=== PATIENT | female | born 1975 | race Caucasian/White ===

== ENCOUNTER 2017-06-28 01:09 | Inpatient (IN) | payer MEDICAID, OTHER ==
[2017-06-28] VITALS (7 sets, daily range): BP systolic 128; BP diastolic 78; PULSE 77–79; RESP 16–18; TEMP 98.1–98.4
[~2017-06-28 01:09] MED LIST: BACT800T5 PO; VENTAER INH; ZITH250T PO
--- NOTE | 2017-06-28 02:19 | HHI.HP ---
HPI Chief Complaint Vaginal bleeding, feeling sick Date Seen: Jun 28, 2017 Time Seen: 02:00 Travel History International Travel<30 Days: No Contact w/Intl Traveler<30Days: No Known Affected Area: No History of Present Illness HPI 41-year-old white female with little to no care since of vaginal bleeding and she describes it "feeling sick", she states the bleeding similar to a period and did not noticed leakage of fluid but with bleeding and was hard for her noted difference, patient was noted to have bleeding for the last several days, prior to that she had bleeding in April which was approximately 14 weeks went to the [facility] had an ultrasound done there which we do not have the results of and was told that she was high risk, she essentially ignored that because she's had no care since that time, she was seen in the ER several days ago and diagnosed with tooth abscess and placed on amoxicillin. Weeks Gestation: 20 Para: 3 : 4 History Obstetric History Obstetric History 3 prior vaginal deliveries Social History Alcohol Use: No Tobacco Use: Yes Substance Abuse: No Allergies-Medications (Allergen,Severity, Reaction): Coded Allergies: adhesive (Unverified Allergy, Mild, BLISTERS AND SKIN REDNESS , 04/26/17) Uncoded Allergies: SELDANE (Allergy, Unknown, N/V SWEATING, 05/06/10) Home Meds Active Scripts Sulfamethoxazole-Trimethoprim DS (Bactrim DS) 1 Tab Tab, 1 TAB PO Q12 for 7 Days , TAB Prov:Lupe Marie MD 10/14/15 Azithromycin (Zithromax Z-Mio) 250 Mg Tab, 250 MG PO DIRECTED for 5 Days, TAB 500 MG (2 TABLETS) PO ON DAY 1, THEN 250 MG (1 TABLET) PO ON DAYS 2 TO 5. Prov:Lupe Marie MD 10/14/15 Albuterol Sulfate (Ventolin Hfa) 18 Gm Aero, 2 PUFF INH Q4, #1 BOX Prov:Lupe Marie MD 10/14/15 Review of Systems General / Constitutional: No: Fever, Weight Gain, Chills, Other Eyes: No: Diploplia, Blurred Vision, Visual changes, Pain, Photophobia HENT: Dental Difficulties, No: Headaches, Vertigo, Lightheadedness Cardiovascular: No: Irregular Rhythm, Chest Pain or Discomfort, Palpitations, Tachycardia, Syncope, Varicosities, Edema, Cyanosis Respiratory: No: Cough, Short of Breath, Other Gastrointestinal: No: Nausea, Vomiting, Diarrhea Genitourinary: No: Decreased Urinary Output, Oliguria Musculoskeletal: No: Limited ROM, Weakness, Cramping, Edema, Pain Skin: No Rash, No Itching, No Dryness, No Lumps, No Change in Pigmentation, No Change in Nails, No Alopecia, No Lesions Neurologic: No: Weakness, Dizziness, Syncope, Focal Abnormalities, Coordination Problem, Headache, Slurred Speech, Seizures Psychiatric: No: Depression, Suicidal Ideations, Homicidal Ideation Endocrine: No: Heat Intolerance, Cold Intolerance, Polydipsia, Polyuria, Other Physical Exam Narrative GENERAL: Well-nourished, well-developed patient. SKIN: Warm and dry. HEAD: Normocephalic and atraumatic. EYES: No scleral icterus. No injection or drainage. ENT: No nasal drainage noted. Mucous membranes pink. Airway patent. NECK: Supple, trachea midline. No JVD. CARDIOVASCULAR: Regular rate and rhythm without murmurs, gallops, or rubs. RESPIRATORY: Breath sounds equal bilaterally. No accessory muscle use. BREASTS: Bilateral exam showed no masses , no retractions, no nipple discharge. ABDOMEN/GI: Abdomen soft, non-tender, bowel sounds present, no rebound, no guarding Gravid to [-20] weeks size Fundal Height: [-at umb] GENITOURINARY: External Genitalia: intact and normal in appearance Vacuum exam done--no active bleeding. The vagina has a washed out appearance and a unit of blood stained vaginal mucosa. Also there is blood staining on the vulva and inner thighs Cervix: [Closed-] Dilatation: [-Closed] Effacement: [-] Thick Station: [-High] Presentation: [-Breech by ultrasound] Membranes: ruptured] Uterine Contractions: [none-] FHT's: 120 EXTREMITIES: No cyanosis or edema. BACK: Nontender without obvious deformity. No CVA tenderness. NEUROLOGICAL: Awake and alert. Motor and sensory grossly within normal limits. Five out of 5 muscle strength in all muscle groups. Normal speech. Caprini VTE Risk Assessment Caprini VTE Risk Assessment: No/Low Risk (score <= 1) Caprini Risk Assessment Model Point Value = 1 Point Value = 2 Point Value = 3 Point Value = 5 Age 41-60 Minor surgery BMI > 25 kg/m2 Swollen legs Varicose veins or History of unexplained or recurrent spontaneous Oral contraceptives or hormone replacement Sepsis (< 1 month) Serious lung disease, including pneumonia (< 1 month) Abnormal pulmonary function Acute myocardial infarction Congestive heart failure (< 1 month) History of inflammatory bowel disease Medical patient at bed rest Age 61-74 Arthroscopic surgery Major open surgery (> 45 min) Laparoscopic surgery (> 45 min) Malignancy Confined to bed (> 72 hours) Immobilizing plaster cast Central venous access Age >= 75 History of VTE Family history of VTE Factor V Leiden Prothrombin [id number] Lupus anticoagulant Anticardiolipin antibodies Elevated serum homocysteine Heparin-induced thrombocytopenia Other congenital or acquired thrombophilia Stroke (< 1 month) Elective arthroplasty Hip, pelvis, or leg fracture Acute spinal cord injury (< 1 month) Prophylaxis Regimen Total Risk Factor Score Risk Level Prophylaxis Regimen 0-1 Low Early ambulation 2 Moderate Order ONE of the following: *Sequential Compression Device (SCD) *Heparin 5000 units SQ BID 3-4 Higher Order ONE of the following medications: *Heparin 5000 units SQ TID *Enoxaparin/Lovenox 40 mg SQ daily (WT < 150 kg, CrCl > 30 mL/min) *Enoxaparin/Lovenox 30 mg SQ daily (WT < 150 kg, CrCl > 10-29 mL/min) *Enoxaparin/Lovenox 30 mg SQ BID (WT < 150 kg, CrCl > 30 mL/min) AND/OR *Sequential Compression Device (SCD) 5 or more Highest Order ONE of the following medications: *Heparin 5000 units SQ TID (Preferred with Epidurals) *Enoxaparin/Lovenox 40 mg SQ daily (WT < 150 kg, CrCl > 30 mL/min) *Enoxaparin/Lovenox 30 mg SQ daily (WT < 150 kg, CrCl > 10-29 mL/min) *Enoxaparin/Lovenox 30 mg SQ BID (WT < 150 kg, CrCl > 30 mL/min) AND *Sequential Compression Device (SCD) Data Data Orders Orders Ob Poc Ultrasound (06/28/17 ) Labs Bedside ultrasound done by me shows a single intrauterine with no amniotic fluid present baby is in the breech to almost transverse position, measurements consistent with 20 weeks 5 days, positive cardiac motion and heart rate 120, placenta is fundal with what appears to be some blood clot or area of hemorrhage between placenta and fetus Assessment/Plan Assessment and Plan 41-year-old white female with essentially no care on regular basis presents with bleeding per vagina and ultrasound finding showing no amniotic fluid around baby, there appears to be areas of hemorrhage in the uterine cavity. Around the placenta and baby, cardiac motion at 120 the baby is in breech presentation, measurements consistent with 20-21 weeks. Impression- placental abruption with PPROM at 20-21 weeks, severe oligohydramnios, breech presentation Plan-plan to check the patient's CBC CMP white counts elevated or if temperature elevates consistent with infection and would begin Cytotec to effect uterine evacuation, if bleeding becomes significant then proceed with uterine evacuation, if cardiac motion stops plan effect uterine evacuation Juarez Spencer II, MD Jun 28, 2017 02:19
[2017-06-28] MEDS ORDERED: MORPHINE SULFATE 4 MG/ML INJ IV PUSH PRN (02:30)
[2017-06-28] MEDS ORDERED: SODIUM CHLORIDE 0.9% FLUSH 10 ML FLUSH IV FLUSH PRN (02:30)
[2017-06-28] MEDS ORDERED: ACETAMINOPHEN 325 MG TAB PO PRN (02:30)
[2017-06-28] MEDS ORDERED: ONDANSETRON HCL 4 MG/2 ML VIAL IV PUSH PRN (02:30)
[2017-06-28] MEDS ORDERED: MORPHINE SULFATE 8 MG/ML INJ IV PUSH PRN (02:30)
[2017-06-28] MEDS ORDERED: cefTRIAXone INJ 1,000 MG in SODIUM CHLORIDE 0.9% INJ 100 ML IV SCH (02:30)
[2017-06-28] MEDS ORDERED: LORazepam 2 MG/ML VIAL IV PUSH PRN (02:30)
[2017-06-28] MEDS: LACTATED RINGER'S 1000 ML INJ 1,000 ML IV SCH ×2 (03:00→19:15)
[2017-06-28 03:25] LABS: BACTERIA, URINE OCC /hpf; BLOOD, URINE MOD (NEG); CALCIUM OXALATE CRYSTALS,URINE RARE /hpf; COMMENT (UR) CULT NOT INDICATED; CULTURE IF INDICATED CULT NOT INDICATED; GLUCOSE,URINE NEG (NEG); KETONE, URINE NEG (NEG); MUCUS URINE FEW /lpf (OCC); NITRITE,URINE NEG (NEG); PH, URINE 5.5 (5.0-8.5); SQUAMOUS EPITHELIAL CELL URINE 6 /hpf (0-5); URINE COLOR YELLOW (YELLW/STRAW)
[2017-06-28 03:38] LABS: ALT (GPT) 501 U/L (10-53); ANION GAP 9 MEQ/L (5-15); AST (GOT) 289 U/L (15-37); BICARBONATE 25.4 MEQ/L (21.0-32.0); BLOOD UREA NITROGEN 12 MG/DL (7-18); CHLORIDE 101 MEQ/L (98-107); GLOMERULAR FILTRATION RATE 126 ML/MIN (>89); SODIUM (NA) 135 MEQ/L (136-145)
[2017-06-28 03:40] LABS: ALKALINE PHOSPHATASE 194 U/L (45-117); TOTAL BILIRUBIN ADULT 0.2 MG/DL (0.2-1.0)
[2017-06-28 03:44] LABS: AUTOMATED NEUTROPHIL # 11.1 TH/MM3 (1.8-7.7); BASOPHIL # 0.1 TH/MM3 (0-0.2); BASOPHIL % 0.6 % (0.0-2.0); EOSINOPHIL # 0.1 TH/MM3 (0-0.4); EOSINOPHIL % 0.5 % (0.0-4.0); HEMATOCRIT 34.8 % (35.0-46.0); LYMPHOCYTE # 2.3 TH/MM3 (1.0-4.8); MEAN CELL VOLUME 83.5 FL (80.0-100.0); MEAN CORPUSCULAR HEMOGLOBIN 27.2 PG (27.0-34.0); MEAN CORPUSCULAR HGB CONC 32.5 % (32.0-36.0); MONO % 6.2 % (0.0-8.0); NEUT % 76.7 % (16.0-70.0); PLATELET COUNT 316 TH/MM3 (150-450); RED BLOOD COUNT 4.16 MIL/MM3 (4.00-5.30); RED CELL DISTRIBUTION WIDTH 15.2 % (11.6-17.2); WHITE BLOOD COUNT 14.5 TH/MM3 (4.0-11.0)
[2017-06-28 03:53] LABS: HEMO FLAGS AUTO DIFF
[2017-06-28 04:21] LABS: BANDS 1 % (0-6); EOSINOPHILS 1 % (0-4); METAMYELOCYTES 1 % (0-1); MYELOCYTES 3 % (0-0); NEUTROPHIL # MANUAL DIFF 10.2 TH/MM3 (1.8-7.7); POLYS (SEG NEUTROPHILS) 64 % (16-70); PROMYELOCYTES 1 % (0-0); WBC DIFF SAMPLE 100
[2017-06-28 04:22] LABS: PLATELET ESTIMATE SMEAR NORMAL (NORMAL); PLATELET MORPHOLOGY NORMAL (NORMAL); SCAN/DIFF FINAL DIFF MANUAL
[2017-06-28 06:16] LABS: INTERNATIONAL NORMALIZED RATIO 0.9 RATIO; PROTHROMBIN TIME - PATIENT 9.5 SEC (9.8-11.6)
--- NOTE | 2017-06-28 09:58 | PD.OB.ANTE ---
Subjective Interval History AFVSS, now feeling some intermittent cramping. Antepartum ROS: Reports: New complaints (cramping (intermittent)), Denies: Loss of fluid, Vaginal bleeding, movement normal, Contractions Objective Vital Signs Vital Signs Date Time Temp Pulse Resp B/P (MAP) Pulse Ox O2 Delivery O2 Flow Rate FiO2 06/28/17 06:00 18 06/28/17 05:00 18 06/28/17 05:00 98.4 06/28/17 04:00 18 06/28/17 03:00 18 Lab & Micro Results Test 06/28/17 02:00 06/28/17 02:30 06/28/17 05:12 Urine Color YELLOW Urine Turbidity HAZY Urine pH 5.5 Urine Specific [place] 1.029 Urine Protein TRACE mg/dL Urine Glucose (UA) NEG mg/dL Urine Ketones NEG mg/dL Urine Occult Blood MOD Urine Nitrite NEG Urine Bilirubin NEG Urine Urobilinogen 2.0 MG/DL Urine Leukocyte Esterase TRACE Urine RBC 8 /hpf Urine WBC 4 /hpf Urine Squamous Epithelial Cells 6 /hpf Urine Calcium Oxalate Crystals RARE /hpf Urine Bacteria OCC /hpf Urine Mucus FEW /lpf Microscopic Urinalysis Comment CULT NOT INDICATED Urine Opiates Screen NEG Urine Barbiturates Screen NEG Urine Amphetamines Screen POS Urine Benzodiazepines Screen NEG Urine Cocaine Screen NEG Urine Cannabinoids Screen POS White Blood Count 14.5 TH/MM3 Red Blood Count 4.16 MIL/MM3 Hemoglobin 11.3 GM/DL Hematocrit 34.8 % Mean Corpuscular Volume 83.5 FL Mean Corpuscular Hemoglobin 27.2 PG Mean Corpuscular Hemoglobin Concent 32.5 % Red Cell Distribution Width 15.2 % Platelet Count 316 TH/MM3 Mean Platelet Volume 8.7 FL Neutrophils (%) (Auto) 76.7 % Lymphocytes (%) (Auto) 16.0 % Monocytes (%) (Auto) 6.2 % Eosinophils (%) (Auto) 0.5 % Basophils (%) (Auto) 0.6 % Neutrophils # (Auto) 11.1 TH/MM3 Lymphocytes # (Auto) 2.3 TH/MM3 Monocytes # (Auto) 0.9 TH/MM3 Eosinophils # (Auto) 0.1 TH/MM3 Basophils # (Auto) 0.1 TH/MM3 CBC Comment AUTO DIFF Differential Total Cells Counted 100 Neutrophils % (Manual) 64 % Band Neutrophils % 1 % Lymphocytes % 25 % Monocytes % 4 % Eosinophils % 1 % Neutrophils # (Manual) 10.2 TH/MM3 Metamyelocytes 1 % Myelocytes 3 % Promyelocytes 1 % Differential Comment FINAL DIFF MANUAL Atypical Lymphocytes % Platelet Estimate NORMAL Platelet Morphology Comment NORMAL Red Cell Morphology Comment NORMAL Blood Urea Nitrogen 12 MG/DL Creatinine 0.54 MG/DL Random Glucose 79 MG/DL Total Protein 7.8 GM/DL Albumin 2.9 GM/DL Calcium Level 8.5 MG/DL Alkaline Phosphatase 194 U/L Aspartate Amino Transf (AST/SGOT) 289 U/L Alanine Aminotransferase (ALT/SGPT) 501 U/L Total Bilirubin 0.2 MG/DL Sodium Level 135 MEQ/L Potassium Level 4.0 MEQ/L Chloride Level 101 MEQ/L Carbon Dioxide Level 25.4 MEQ/L Anion Gap 9 MEQ/L Estimat Glomerular Filtration Rate 126 ML/MIN Prothrombin Time 9.5 SEC Prothromb Time International Ratio 0.9 RATIO Activated Partial Thromboplast Time 25.0 SEC Physical Exam GENERAL: Well-nourished, well-developed patient. CARDIOVASCULAR: Regular rate and rhythm without murmurs, gallops, or rubs. RESPIRATORY: Breath sounds equal bilaterally. No accessory muscle use. ABDOMEN/GI: Abdomen soft, non-tender. Uterus just below umbilicus. GENITOURINARY: External Genitalia: intact and normal in appearance. Cervix closed/thick/high. Minimal bleeding. EXTREMITIES: No cyanosis or edema, non-tender, without signs of DVT. Assessment and Plan Problem List: (1) premature rupture of membranes (PPROM) with unknown onset of labor ICD Codes: O42.919 - premature rupture of membranes, unspecified as to length of time between rupture and onset of labor, unspecified trimester Status: Acute (2) Anhydramnios in second trimester ICD Codes: O41.02X0 - Oligohydramnios, second trimester, not applicable or unspecified Qualifiers: Qualified Codes: O41.02X0 - Oligohydramnios, second trimester, not applicable or unspecified (3) Vaginal bleeding during , antepartum ICD Codes: O46.90 - Antepartum hemorrhage, unspecified, unspecified trimester Status: Acute Assessment and Plan 41-year-old white female with essentially no care on regular basis presents with bleeding per vagina and ultrasound finding showing no amniotic fluid around baby, there appears to be areas of hemorrhage in the uterine cavity. OB diagnostic ultrasound c/w ~22 weeks gestation, ~500 g fetus. FHT within normal limits. Severe oligohydramnios/anhydramnios. Breech presentation. Placenta with intraamniotic hemorrhage. #1 IUP - FHT currently normal, continue to monitor #2 PPROM - Currently afebrile, no indication for delivery at this time. Possibly threatened miscarriage given cramping. Consult neonatology per maternal request to discuss viability of if delivery were to occur #3 Anhydramnios - legal counsel on drug use. Consult neonatology as above. Continue to monitor clinically. #4 Second trimester hemorrhage - Uterus firm, non-tender and patient afebrile. Mild cramping, not severe. Bleeding minimal. Continue to monitor. D/w Zay Goodwin MD R2 Jun 28, 2017 09:58
--- NOTE | 2017-06-28 11:52 | HHI.PR ---
OUTREACH REP Note Note SUMMARY: I assumed care of Ms. Beck this morning. Briefly, she is a 41y/o @ 21.6wks by today's who was admitted overnight with PPROM and suspected abruption. Her is complicated by no PNC, AMA, IVDA ( cocaine previously, currently methamphetamines), MJ use, EtOH use, NSAID exposure, and elevated LFTs. She reports that at the beginning of her , she was using cocaine and experienced vaginal bleeding. She states that it stopped and restarted later in her and she was seen at another hospital recently. She presented here overnight with increased VB and was found to be ruptured. She is anhydramniotic on US. EFW is 500g and she is estimated to be 21.6wks. SUBJECTIVE: Pt denies current LOF. She reports continued VB. She is having cramping and has felt cold. OBJECTIVE: NAD fundus non-tender to palpation no edema Laboratory Tests Test 06/28/17 02:00 06/28/17 02:30 06/28/17 05:12 Urine Color YELLOW Urine Turbidity HAZY Urine pH 5.5 Urine Specific [place] 1.029 Urine Protein TRACE Urine Glucose (UA) NEG Urine Ketones NEG Urine Occult Blood MOD Urine Nitrite NEG Urine Bilirubin NEG Urine Urobilinogen 2.0 Urine Leukocyte Esterase TRACE Urine RBC 8 Urine WBC 4 Urine Squamous Epithelial Cells 6 Urine Calcium Oxalate Crystals RARE Urine Bacteria OCC Urine Mucus FEW Microscopic Urinalysis Comment CULT NOT INDICATED Urine Opiates Screen NEG Urine Barbiturates Screen NEG Urine Amphetamines Screen POS Urine Benzodiazepines Screen NEG Urine Cocaine Screen NEG Urine Cannabinoids Screen POS White Blood Count 14.5 Red Blood Count 4.16 Hemoglobin 11.3 Hematocrit 34.8 Mean Corpuscular Volume 83.5 Mean Corpuscular Hemoglobin 27.2 Mean Corpuscular Hemoglobin Concent 32.5 Red Cell Distribution Width 15.2 Platelet Count 316 Mean Platelet Volume 8.7 Neutrophils (%) (Auto) 76.7 Lymphocytes (%) (Auto) 16.0 Monocytes (%) (Auto) 6.2 Eosinophils (%) (Auto) 0.5 Basophils (%) (Auto) 0.6 Neutrophils # (Auto) 11.1 Lymphocytes # (Auto) 2.3 Monocytes # (Auto) 0.9 Eosinophils # (Auto) 0.1 Basophils # (Auto) 0.1 CBC Comment AUTO DIFF Differential Total Cells Counted 100 Neutrophils % (Manual) 64 Band Neutrophils % 1 Lymphocytes % 25 Monocytes % 4 Eosinophils % 1 Neutrophils # (Manual) 10.2 Metamyelocytes 1 Myelocytes 3 Promyelocytes 1 Differential Comment FINAL DIFF MANUAL Atypical Lymphocytes Platelet Estimate NORMAL Platelet Morphology Comment NORMAL Red Cell Morphology Comment NORMAL Blood Urea Nitrogen 12 Creatinine 0.54 Random Glucose 79 Total Protein 7.8 Albumin 2.9 Calcium Level 8.5 Alkaline Phosphatase 194 Aspartate Amino Transf (AST/SGOT) 289 Alanine Aminotransferase (ALT/SGPT) 501 Total Bilirubin 0.2 Sodium Level 135 Potassium Level 4.0 Chloride Level 101 Carbon Dioxide Level 25.4 Anion Gap 9 Estimat Glomerular Filtration Rate 126 Prothrombin Time 9.5 Prothromb Time International Ratio 0.9 Activated Partial Thromboplast Time 25.0 A/P: 41y/o @ 21.6wks 1. 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 Advised that outcome would depend on EGA at time of delivery (latest would be 34wk IOL) but cautioned that polysubstance abuse can have profound effects on outcome and persistent anhydramnios would be associated with hypoplastic lung syndrome, regardless of age at deliver. Pt aware that viability is typically 23-24wks. Advised that NICU will speak with her prior to making any decisions. Pt also aware that if she chooses expectant management , ideal delivery would be at 34wks, however for distress after viability or for maternal infection, delivery would be sooner. Advised pt on the small but realistic chance of maternal sepsis. Pt counseled that until viability, maternal status is priority and if she showed signs of infection, delivery would need to happen, regardless of survivability. Pt also counseled on the option of IOL now. She is contemplative. -- d/c rocephin; if pt decides for expectant management, initiate latency antibiotics @ 23-24wks -- if pt decides for expectant management, initiate BMZ @ 23-24wks -- monitor closely for s/s of infection -- toco now for monitoring ctx -- NICU and SW c/s pending 2. elevated LFTs -- differential includes hepatitis (pt with IVDA), etoh, tylenol toxicity (pt denies use), HELLP (unlikely given normal BPs and plts) -- hepatitis panel ordered -- avoid hepatic meds at this time 3. Polysubstance abuse -- SW consult needed -- pt counseled extensively on unknown effects -- HIV and hepatitis panel ordered 4. well being -- heart tones qshift 5. General -- diet: regular -- DVT ppx: SCDs -- code status: full Sun Fernandez MD Jun 28, 2017 11:52
[2017-06-28] MEDS ORDERED: CYCLOBENZAPRINE HCL 10 MG TAB PO PRN (15:00)
--- NOTE | 2017-06-28 17:17 | HHI.PR ---
Addendum to Inpatient Note Addendum Reason: Additional Documentation Additional Information Neonatology Consult Note: Maternal Hx: Ms Beck is a 41 y/o with little to no care who presented early this morning with vaginal bleeding over the past couple days that increased recently. She verbally reported a previous ultrasound at an outside facility around 14 weeks gestation that noted anhydramnios at which time she was told that she had a high risk but still did not obtain care. Mom has a history of cocaine use but is now using methamphetamines as well as marijauna (+ UDS on admission). She was also recently seen in the ED and diagnosed with a tooth abscess requiring amoxicillin therapy. Mom's most recent ultrasound completed today by OB diagnositcs placed the baby at 21.6 weeks gestation with an estimated weight of 500gm and noted anhydramnios with concern for placental bleeding as well as an echogenic intracardiac focus. Ms. Beck has been counseled by the OB service that her baby has a very poor prognosis but she requested to speak with Neonatology. We have been consulted by Dr. Spencer and Dr. Amaya to speak with her about viability and extreme prematurity. Maternal Medications: flexiril prn zofran prn acetaminophen prn morphine prn ativan prn Ceftriaxone x 1 HAS NOT received betamethasone Mom has reportedly used cocaine during and UDS was positive for marijuana and methamphetamines. Maternal Serologies: HIV negative Hep B negative Hep C positive (with elevated liver enzymes) RPR pending Discussion: Dr. Aranda and Priscila DE JESUS spoke with mom at her bedside. Mom asked " if her baby had any chance"?. It was explained that there were 2 issues that needed to be discussed which were survival as well as quality of life/ complications if survival occurred. Mom was told that for an average 22 week gestation , chances of survival were very poor, generally about 5-10%. Having said that, her had other concerns such as anhydramnios that considerably complicate the baby's prognosis. She was informed that anhydramnios prevents the lungs from developing normally and that they baby has a high chance of having hypoplastic lungs at delivery, regardless of the gestational age at delivery. She was also told that if she plans to continue this despite the poor prognosis, that in order to maximize the ' s potential, she would need to receive steroids to maximize potential lung function/development and deliver at tertiary care facility with a level III NICU (such as [facility]) as transporting an that premature can add further complications. She was told that if she did deliver at [facility] at 22 weeks gestation or later, that we would attempt stabilization for transport if that was her desire but that she would have to decide her wishes for the infant prior to delivery as the would need immediate invasive medical intervention and there would not be time for discussion at that point. We then discussed some of the common, more severe complications of delivery at extremely gestations such as 22 weeks. We explained, IVH, HMD/BPD requiring extended ventilation, feeding intolerance/NEC, infections requiring antibiotics, etc. We explained that most if not all infants born at this gestation have mcfp complications that can include developmental delays ( as severe as not walking or talking), learning disabilities, cerebral palsy, in addition to an extended hospitalization of 3 months or greater. Mom was very tearful. We asked if she had any family support to which she replied that her ex- was bring her daughter to visit this evening and that she had just spoken with the baby's father who was in [place]. He told her to do whatever she thought was best. She stated she had no questions at this time. We told her that we would give her some time to process the conversation and that the [employer] COORDINATOR would be happy to come and speak with her again if more questions should arise. Dr. Amaya was updated on the discussion. Thank you for this consultation and please feel free to contact the Neonatology team if we can be of any further assistance. Priscila Mcmillan Jun 28, 2017 17:17
[2017-06-28] MEDS: SODIUM CHLORIDE 0.9% FLUSH 10 ML FLUSH IV FLUSH SCH (21:00)
[2017-06-29] VITALS (22 sets, daily range): BP systolic 125–135; BP diastolic 72–89; PULSE 75–240; RESP 16–18; TEMP 97.5–98.3
[2017-06-29 06:08] LABS: AUTOMATED NEUTROPHIL # 8.1 TH/MM3 (1.8-7.7); BASOPHIL # 0.1 TH/MM3 (0-0.2); BASOPHIL % 0.7 % (0.0-2.0); EOSINOPHIL # 0.1 TH/MM3 (0-0.4); EOSINOPHIL % 1.2 % (0.0-4.0); LYMPH % 18.9 % (9.0-44.0); LYMPHOCYTE # 2.1 TH/MM3 (1.0-4.8); MEAN CELL VOLUME 82.9 FL (80.0-100.0); MEAN CORPUSCULAR HEMOGLOBIN 27.3 PG (27.0-34.0); MEAN CORPUSCULAR HGB CONC 32.9 % (32.0-36.0); NEUT % 71.2 % (16.0-70.0); PLATELET COUNT 258 TH/MM3 (150-450); WHITE BLOOD COUNT 11.3 TH/MM3 (4.0-11.0)
[2017-06-29 06:14] LABS: HEMO FLAGS AUTO DIFF
[2017-06-29 06:23] LABS: ANION GAP 6 MEQ/L (5-15); AST (GOT) 181 U/L (15-37); BICARBONATE 23.6 MEQ/L (21.0-32.0); BLOOD UREA NITROGEN 8 MG/DL (7-18); CHLORIDE 106 MEQ/L (98-107); GLOMERULAR FILTRATION RATE 178 ML/MIN (>89); POTASSIUM 4.1 MEQ/L (3.5-5.1); SODIUM (NA) 136 MEQ/L (136-145)
[2017-06-29 06:25] LABS: ALT (GPT) 361 U/L (10-53)
[2017-06-29 06:26] LABS: ALKALINE PHOSPHATASE 159 U/L (45-117); TOTAL BILIRUBIN ADULT 0.2 MG/DL (0.2-1.0)
[2017-06-29] MEDS: LACTATED RINGER'S 1000 ML INJ 1,000 ML IV SCH ×2 (06:30→12:08)
[2017-06-29 07:37] LABS: SCAN/DIFF AUTO DIFF CONFIRMED
--- NOTE | 2017-06-29 08:34 | PD.OB.ANTE ---
Subjective Diagnosis: (1) premature rupture of membranes (PPROM) with unknown onset of labor Diagnosis: Principal (2) Anhydramnios in second trimester (3) 22 weeks gestation of (4) No care in current in second trimester (5) Vaginal bleeding during , antepartum (6) AMA (advanced maternal age) multigravida 35+ (7) Hepatitis C virus (8) Polysubstance abuse Interval History Pt reports no complaints. She denies fevers/chills overnight. States that her cramping has resolved. She had only a small amount of pink blood when she wiped today. Antepartum ROS: Reports: Loss of fluid, Vaginal bleeding, Denies: Contractions Objective Vital Signs Vital Signs Date Time Temp Pulse Resp B/P (MAP) Pulse Ox O2 Delivery O2 Flow Rate FiO2 06/29/17 08:21 16 06/29/17 08:00 16 06/29/17 01:52 77 135/81 (99) 06/29/17 01:30 240 06/28/17 23:05 98.1 16 06/28/17 19:32 77 128/78 (95) 06/28/17 19:30 79 06/28/17 19:30 98.1 18 Lab & Micro Results Test 06/28/17 12:55 06/28/17 14:32 06/29/17 05:04 Fibrinogen 382 mg/dL HIV (1&2) Antibody NEGATIVE White Blood Count 11.3 TH/MM3 Red Blood Count 3.50 MIL/MM3 Hemoglobin 9.6 GM/DL Hematocrit 29.0 % Mean Corpuscular Volume 82.9 FL Mean Corpuscular Hemoglobin 27.3 PG Mean Corpuscular Hemoglobin Concent 32.9 % Red Cell Distribution Width 15.0 % Platelet Count 258 TH/MM3 Mean Platelet Volume 9.0 FL Neutrophils (%) (Auto) 71.2 % Lymphocytes (%) (Auto) 18.9 % Monocytes (%) (Auto) 8.0 % Eosinophils (%) (Auto) 1.2 % Basophils (%) (Auto) 0.7 % Neutrophils # (Auto) 8.1 TH/MM3 Lymphocytes # (Auto) 2.1 TH/MM3 Monocytes # (Auto) 0.9 TH/MM3 Eosinophils # (Auto) 0.1 TH/MM3 Basophils # (Auto) 0.1 TH/MM3 CBC Comment AUTO DIFF Differential Comment AUTO DIFF CONFIRMED Blood Urea Nitrogen 8 MG/DL Creatinine 0.40 MG/DL Random Glucose 85 MG/DL Total Protein 6.7 GM/DL Albumin 2.4 GM/DL Calcium Level 8.5 MG/DL Alkaline Phosphatase 159 U/L Aspartate Amino Transf (AST/SGOT) 181 U/L Alanine Aminotransferase (ALT/SGPT) 361 U/L Total Bilirubin 0.2 MG/DL Sodium Level 136 MEQ/L Potassium Level 4.1 MEQ/L Chloride Level 106 MEQ/L Carbon Dioxide Level 23.6 MEQ/L Anion Gap 6 MEQ/L Estimat Glomerular Filtration Rate 178 ML/MIN Physical Exam GENERAL: Well-nourished, well-developed patient. ABDOMEN/GI: Abdomen soft, fundus non-tender EXTREMITIES: No cyanosis or edema, non-tender, without signs of DVT. FHT's: present Assessment and Plan Problem List: (1) premature rupture of membranes (PPROM) with unknown onset of labor ICD Codes: O42.919 - premature rupture of membranes, unspecified as to length of time between rupture and onset of labor, unspecified trimester Status: Acute (2) Anhydramnios in second trimester ICD Codes: O41.02X0 - Oligohydramnios, second trimester, not applicable or unspecified Status: Acute Qualifiers: Qualified Codes: O41.02X0 - Oligohydramnios, second trimester, not applicable or unspecified (3) Vaginal bleeding during , antepartum ICD Codes: O46.90 - Antepartum hemorrhage, unspecified, unspecified trimester Status: Chronic (4) Hepatitis C virus ICD Codes: B19.20 - Unspecified viral hepatitis C without hepatic coma (5) 22 weeks gestation of ICD Codes: Z3A.22 - 22 weeks gestation of (6) No care in current in second trimester ICD Codes: O09.32 - Supervision of with insufficient care, second trimester (7) Polysubstance abuse ICD Codes: F19.10 - Other psychoactive substance abuse, uncomplicated (8) AMA (advanced maternal age) multigravida 35+ ICD Codes: O09.529 - Supervision of elderly multigravida, unspecified trimester Assessment and Plan 41y/o @ 22.0wks 1. 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 Hep C -- diagnosed on this admission, pt aware -- GI consult pending -- LFTs improved today -- avoid hepatic meds 3. Polysubstance abuse -- SW consult needed -- pt counseled extensively on unknown effects 4. well being -- heart tones qshift 5. General -- diet: regular -- DVT ppx: SCDs -- code status: full Sun Fernandez MD Jun 29, 2017 08:34
[2017-06-29] MEDS: SODIUM CHLORIDE 0.9% FLUSH 10 ML FLUSH IV FLUSH SCH (09:00)
--- NOTE | 2017-06-29 11:49 | PD.CONS ---
HPI History of Present Illness This is a 41 year old female patient who is 22 weeks , who has not had regular care, and presented to the emergency room for vaginal bleeding. She was noted to have premature rupture of membranes and anhydramnios. She was noted to have elevated liver function tests and tested positive for hepatitis C antibodies and therefore GI has been consulted for further evaluation and treatment of increased liver enzymes and hepatitis C. The patient reports that she has never been told in the past that she had hepatitis C. She denies any known history of any liver issues. She does report that both her mother and father have liver cirrhosis related to alcohol and hepatitis C and that both her boyfriend and ex-boyfriend have hepatitis C. She has a history of IV drug abuse and was currently using marijuana, amphetamines, and cocaine. She reports that she uses IV drugs but has never shared any needles. She also reports that she drinks heavily, about 3-4 alcoholic drinks per day. She denies any nausea, vomiting, abdominal pain or other GI issues. She reports that she has been tolerating food and has not had any GI issues. She reports that she passed a small amount of pink tinged fluid earlier, but that the bleeding seems to be resolving. (Mary Villarreal) [facility] Past Medical History Alcohol abuse Polysubstance abuse with IV drug use Past Surgical History Denies (Mary Villarreal) Coded Allergies: adhesive (Unverified Allergy, Mild, BLISTERS AND SKIN REDNESS , 04/26/17) Uncoded Allergies: SELDANE (Allergy, Unknown, N/V SWEATING, 05/06/10) Medications Allergies Coded Allergies Type Severity Reaction Last Updated Verified adhesive Allergy Mild BLISTERS AND SKIN REDNESS 04/26/17 No Uncoded Allergies Type Severity Reaction Last Updated Verified SELDANE Allergy Unknown N/V SWEATING 05/06/10 Active Scripts Medications Dose Route/Sig Max Daily Dose Days Date Category Dose Instructions Bactrim DS (Sulfamethoxazole-Trimethoprim DS) 1 Tab Tab 1 Tab PO Q12 7 10/14/15 Rx Zithromax Z-Mio (Azithromycin) 250 Mg Tab 250 Mg PO DIRECTED 5 10/14/15 Rx 500 MG (2 TABLETS) PO ON DAY 1, THEN 250 MG (1 TABLET) PO ON DAYS 2 TO 5. Ventolin Hfa (Albuterol Sulfate) 18 Gm Aero 2 Puff INH Q4 10/14/15 Rx Family History Reports that both her mother and father have hepatitis C, liver cirrhosis, and emphysema Social History Smokes 1 pack per day Positive for amphetamines, cocaine, and marijuana. Positive for IV drug use Drinks 3-4 alcoholic beverages per day (Mary Villarreal) Review of Systems Constitutional: DENIES: Fatigue, Weight loss Respiratory: DENIES: Cough Cardiovascular: DENIES: Chest pain Gastrointestinal: DENIES: Abdominal pain, Black stools, Bloody stools, Constipation, Diarrhea, Nausea, Vomiting, Hematemesis Integumentary: DENIES: Jaundice Hematologic/lymphatic: DENIES: Bruising Neurologic: DENIES: Headache Psychiatric: DENIES: Confusion (Mary Villarreal) GI Exam Vitals I&O Vital Signs Date Time Temp Pulse Resp B/P (MAP) Pulse Ox O2 Delivery O2 Flow Rate FiO2 06/29/17 08:30 75 06/29/17 08:30 125/72 (89) 06/29/17 08:30 98.3 06/29/17 08:21 16 06/29/17 08:20 237 06/29/17 08:15 240 06/29/17 08:10 240 06/29/17 08:05 239 06/29/17 08:00 16 06/29/17 08:00 240 06/29/17 01:52 77 135/81 (99) 06/29/17 01:30 240 06/28/17 23:05 98.1 16 06/28/17 19:32 77 128/78 (95) 06/28/17 19:30 79 06/28/17 19:30 98.1 18 Laboratory Test 06/28/17 12:55 06/28/17 14:32 06/29/17 05:04 Fibrinogen 382 mg/dL Rapid Plasma Reagin NON-REACTIVE HIV (1&2) Antibody NEGATIVE White Blood Count 11.3 TH/MM3 Red Blood Count 3.50 MIL/MM3 Hemoglobin 9.6 GM/DL Hematocrit 29.0 % Mean Corpuscular Volume 82.9 FL Mean Corpuscular Hemoglobin 27.3 PG Mean Corpuscular Hemoglobin Concent 32.9 % Red Cell Distribution Width 15.0 % Platelet Count 258 TH/MM3 Mean Platelet Volume 9.0 FL Neutrophils (%) (Auto) 71.2 % Lymphocytes (%) (Auto) 18.9 % Monocytes (%) (Auto) 8.0 % Eosinophils (%) (Auto) 1.2 % Basophils (%) (Auto) 0.7 % Neutrophils # (Auto) 8.1 TH/MM3 Lymphocytes # (Auto) 2.1 TH/MM3 Monocytes # (Auto) 0.9 TH/MM3 Eosinophils # (Auto) 0.1 TH/MM3 Basophils # (Auto) 0.1 TH/MM3 CBC Comment AUTO DIFF Differential Comment AUTO DIFF CONFIRMED Blood Urea Nitrogen 8 MG/DL Creatinine 0.40 MG/DL Random Glucose 85 MG/DL Total Protein 6.7 GM/DL Albumin 2.4 GM/DL Calcium Level 8.5 MG/DL Alkaline Phosphatase 159 U/L Aspartate Amino Transf (AST/SGOT) 181 U/L Alanine Aminotransferase (ALT/SGPT) 361 U/L Total Bilirubin 0.2 MG/DL Sodium Level 136 MEQ/L Potassium Level 4.1 MEQ/L Chloride Level 106 MEQ/L Carbon Dioxide Level 23.6 MEQ/L Anion Gap 6 MEQ/L Estimat Glomerular Filtration Rate 178 ML/MIN Physical Examination HEENT: Normocephalic; atraumatic; no jaundice. CHEST: CTA CARDIAC: RRR ABDOMEN: Soft, nondistended, nontender; no hepatosplenomegaly; bowel sounds are present in all four quadrants. EXTREMITIES: No clubbing, cyanosis, or edema. SKIN: Normal; no rash; no jaundice. DECAY CONTROL OPERATOR: No focal deficits; alert and oriented times three. (Mary Villarreal) Assessment and Plan Plan ASSESSMENT: - Elevated LFTs in patient with PSA with etoh/marijuana/cocaine/ methamphetamines and HCV Ab. LFTs improved. T. Bili 0.2, AST 181, ALT 361, alkaline phosphatase 159. Positive for amphetamines and cannabinoids. Patient also reports cocaine use. HCV Ab (+). Denies any GI symptoms- n/v/pain. Likely this is related to PSA, likely on underlying HCV. Will get US, await genotype/viral load, and monitor LFTs. - HCV Ab (+). Genotype and viral load pending. - Anemia, mild. 9.6/29.0 - IUP with premature rupture of membranes and anhydramnios. 22 weeks. Per OB/ [employer]. - PSA, ETOH abuse per attending. PLAN: - ERIS - HCV Genotype/Viral load - RUQ US - LFT in am - Needs complete ETOH/Drug cessation - Supportive care - Further recommendations to follow based on results of above - Patient seen and examined by Dr. Rodriguez and myself and this note is written on his behalf (Mary Villarreal) Physician Comments Patient seen and examined Agree with above Continue with current supportive care Monitor labs Alcohol and drug cessation Outpatient follow-up for hepatitis C once patient is drug free (Rogerio Rodriguez MD) Mary Villarreal Jun 29, 2017 11:49 Rogerio Rodriguez MD Jun 29, 2017 16:35
[2017-06-29] MEDS ORDERED: AMOXICILLIN (TRIHYDRATE) 500 MG CAP PO SCH (13:15)
--- NOTE | 2017-06-29 15:54 | PD.OB.ANTE ---
Subjective Diagnosis: (1) premature rupture of membranes (PPROM) with unknown onset of labor (2) Anhydramnios in second trimester (3) Vaginal bleeding during , antepartum (4) Hepatitis C virus (5) 22 weeks gestation of (6) No care in current in second trimester (7) Polysubstance abuse (8) AMA (advanced maternal age) multigravida 35+ Interval History She is 22--23 week intrauterine with PPROM and the chronic abruption who is been hospitalized for inpatient care of observing for either bleeding or infection onset of labor onset today she is been afebrile, has little to no abdominal tenderness, she is positive hepatitis C antibody in her liver functions been elevated but they have stabilized and decreased somewhat. Other laboratory WITHIN normal limits and stable at this point Patient now essentially demands to be discharged she was leaving hospital to take care of her daughter. I explained to the patient that even though she seems fairly stable at this point things could change very rapidly and that she could have and severe bleeding or high temperature very quickly and we recommended she stay in the hospital to maximize her and her fetus chance for survival was explained to her that she may not be allergic back to the hospital if she had this severe bleeding became incapacitated due to infection or fever she was and did not respond to that and states she still wants to leave the hospital. She says she will sign her AMA papers and will leaving come back in a week for recheck everything and at that time possibly transfer her to [place] says she would be at near viable state Objective Vital Signs Vital Signs Date Time Temp Pulse Resp B/P (MAP) Pulse Ox O2 Delivery O2 Flow Rate FiO2 06/29/17 12:10 18 06/29/17 12:09 84 125/89 (101) 06/29/17 12:05 105 06/29/17 12:00 86 06/29/17 08:30 75 06/29/17 08:30 125/72 (89) 06/29/17 08:30 98.3 06/29/17 08:21 16 06/29/17 08:20 237 06/29/17 08:15 240 06/29/17 08:10 240 06/29/17 08:05 239 06/29/17 08:00 16 06/29/17 08:00 240 06/29/17 01:52 77 135/81 (99) 06/29/17 01:30 240 06/28/17 23:05 98.1 16 06/28/17 19:32 77 128/78 (95) 06/28/17 19:30 79 06/28/17 19:30 98.1 18 Lab & Micro Results Test 06/29/17 05:04 White Blood Count 11.3 TH/MM3 Red Blood Count 3.50 MIL/MM3 Hemoglobin 9.6 GM/DL Hematocrit 29.0 % Mean Corpuscular Volume 82.9 FL Mean Corpuscular Hemoglobin 27.3 PG Mean Corpuscular Hemoglobin Concent 32.9 % Red Cell Distribution Width 15.0 % Platelet Count 258 TH/MM3 Mean Platelet Volume 9.0 FL Neutrophils (%) (Auto) 71.2 % Lymphocytes (%) (Auto) 18.9 % Monocytes (%) (Auto) 8.0 % Eosinophils (%) (Auto) 1.2 % Basophils (%) (Auto) 0.7 % Neutrophils # (Auto) 8.1 TH/MM3 Lymphocytes # (Auto) 2.1 TH/MM3 Monocytes # (Auto) 0.9 TH/MM3 Eosinophils # (Auto) 0.1 TH/MM3 Basophils # (Auto) 0.1 TH/MM3 CBC Comment AUTO DIFF Differential Comment AUTO DIFF CONFIRMED Blood Urea Nitrogen 8 MG/DL Creatinine 0.40 MG/DL Random Glucose 85 MG/DL Total Protein 6.7 GM/DL Albumin 2.4 GM/DL Calcium Level 8.5 MG/DL Alkaline Phosphatase 159 U/L Aspartate Amino Transf (AST/SGOT) 181 U/L Alanine Aminotransferase (ALT/SGPT) 361 U/L Total Bilirubin 0.2 MG/DL Sodium Level 136 MEQ/L Potassium Level 4.1 MEQ/L Chloride Level 106 MEQ/L Carbon Dioxide Level 23.6 MEQ/L Anion Gap 6 MEQ/L Estimat Glomerular Filtration Rate 178 ML/MIN Physical Exam GENERAL: Well-nourished, well-developed patient. CARDIOVASCULAR: Regular rate and rhythm without murmurs, gallops, or rubs. RESPIRATORY: Breath sounds equal bilaterally. No accessory muscle use. ABDOMEN/GI: Abdomen soft, non-tender. Uterus size equal dates Fundus: [-At umbilicus] GENITOURINARY: External Genitalia: intact and normal in appearance Cervix: [-] Dilatation: [0-] Effacement: [Thick Station: [-3] Presentation: [Breech-] Membranes: [-PPROM] Uterine Contractions: [0-] FHT's: 160 EXTREMITIES: No cyanosis or edema, non-tender, without signs of DVT. Assessment and Plan Problem List: (1) premature rupture of membranes (PPROM) with unknown onset of labor ICD Codes: O42.919 - premature rupture of membranes, unspecified as to length of time between rupture and onset of labor, unspecified trimester Status: Acute (2) Anhydramnios in second trimester ICD Codes: O41.02X0 - Oligohydramnios, second trimester, not applicable or unspecified Status: Acute Qualifiers: Qualified Codes: O41.02X0 - Oligohydramnios, second trimester, not applicable or unspecified (3) Vaginal bleeding during , antepartum ICD Codes: O46.90 - Antepartum hemorrhage, unspecified, unspecified trimester Status: Chronic (4) Hepatitis C virus ICD Codes: B19.20 - Unspecified viral hepatitis C without hepatic coma (5) 22 weeks gestation of ICD Codes: Z3A.22 - 22 weeks gestation of (6) No care in current in second trimester ICD Codes: O09.32 - Supervision of with insufficient care, second trimester (7) Polysubstance abuse ICD Codes: F19.10 - Other psychoactive substance abuse, uncomplicated (8) AMA (advanced maternal age) multigravida 35+ ICD Codes: O09.529 - Supervision of elderly multigravida, unspecified trimester Assessment and Plan 41y/o @ 22.0wks 1. 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 Hep C -- diagnosed on this admission, pt aware -- GI consult pending -- LFTs improved today -- avoid hepatic meds 3. Polysubstance abuse -- SW consult needed -- pt counseled extensively on unknown effects 4. well being -- heart tones qshift 5. General -- diet: regular -- DVT ppx: SCDs -- code status: full Juarez Spencer II, MD Jun 29, 2017 15:54
== END 2017-06-29 17:51 | disposition left against medical advice (07) | DRG 781 ==
LOC: HOBED 01:09 → UNDOADMIN 02:07 → H2EA 02:07
PROVIDERS: ADMIT Obstetrics & Gynecology Maternal & Fetal Medicine; ATTEND Obstetrics & Gynecology Maternal & Fetal Medicine
DX: O45.92 Premature separation of placenta, unspecified, second trimester (principal); O98.412 Viral hepatitis complicating pregnancy, second trimester; O20.9 Hemorrhage in early pregnancy, unspecified; O41.02X0 Oligohydramnios, second trimester, not applicable or unspecified; O99.322 Drug use complicating pregnancy, second trimester; O32.1XX0 Maternal care for breech presentation, not applicable or unspecified; O42.912 Preterm premature rupture of membranes, unspecified as to length of time between rupture and onset of labor, second trimester; O99.012 Anemia complicating pregnancy, second trimester; O99.332 Smoking (tobacco) complicating pregnancy, second trimester; B19.20 Unspecified viral hepatitis C without hepatic coma; F10.10 Alcohol abuse, uncomplicated; F14.10 Cocaine abuse, uncomplicated; F15.10 Other stimulant abuse, uncomplicated; Z3A.22 22 weeks gestation of pregnancy; O99.312 Alcohol use complicating pregnancy, second trimester
CPT/HCPCS: 76805; 76815; 80053; 80074; 80307; 81001; 85007; 85025; 85027; 85384; 85610; 85730; 86592; 86703; 86850; 86900; 86901; 87522; J0696; J7120